=== PATIENT | male | born 1965 ===

== ENCOUNTER 2018-01-13 23:39 | Inpatient (IN) ==
[2018-01-14] MEDS ORDERED: ONDANSETRON 4 MG/2 ML VIAL IV STA (00:07)
[2018-01-14] MEDS ORDERED: MORPHINE 2 MG/1 ML SYRINGE IV STA (00:07)
[2018-01-14] MEDS ORDERED: ONDANSETRON 4 MG/2 ML VIAL ONE (00:19)
[2018-01-14] MEDS ORDERED: MORPHINE 2 MG/1 ML SYRINGE ONE (00:19)
[2018-01-14] MEDS ORDERED: ONDANSETRON 4 MG/2 ML VIAL IV PRN (00:26)
[2018-01-14] MEDS: SODIUM CHLORIDE 0.9% 1,000 ML IV SCH (01:49)
[2018-01-14] MEDS ORDERED: INFLUENZA VIRUS VACCINE 0.5 ML SYRINGE IM ONE (02:10)
[2018-01-14] MEDS: CLINDAMYCIN INJ 600 MG in PREMIX 1 EACH IV SCH ×4 (06:11→23:14)
[2018-01-14 09:36] LABS: Basophils # 0.1 10*3/uL (0.0-0.2); Basophils % 0.6 % (0.0-0.8); Eosinophils # 0.2 10*3/uL (0.0-0.87); Eosinophils % 1.5 % (0.00-10.9); Hematocrit 42.9 VOL% (42.0-52.0); Hemoglobin 14.4 GM/DL (14.0-18.0); Immature Granulocytes Absolute 0.14 #; Lymphocytes # 0.8 10*3/uL (1.4-4.0); Lymphocytes % 5.4 % (21.2-54.2); Mean Corpuscular HGB Conc 33.6 GM/DL (32-36); Mean Corpuscular Hemoglobin 32 PG (27-34); Mean Corpuscular Volume 96.6 FL (87-102); Mean Platelet Volume 9.2 FL (9.6-12.0); Monocytes # 1.3 10*3/uL (0.11-0.8); Monocytes % 8.8 % (1.7-12.7); Neutrophils # 11.9 10*3/uL (1.4-7.4); Neutrophils % 82.7 % (38.7-73.9); Platelet Count 261 T/CUMM (130-400); Red Blood Count 4.44 MC/CUMM (3.8-5.5); Red Cell Distribution Width 14.2 % (9.3-17.3); White Blood Count 14.4 T/CUMM (4-12)
[2018-01-14] MEDS: ENOXAPARIN 40 MG/0.4 ML SYRINGE SUBCUT SCH (09:45)
[2018-01-14 11:57] LABS: Calcium 7.8 MG/DL (8.5-10.1); Osmolality,Calculated 284.4 MOS/KG (273-304); Potassium 5.6 MMOL/L (3.5-5.1)
[2018-01-14] MEDS ORDERED: CALCIUM GLUCONATE 1,000 MG in SODIUM CHLORIDE 0.9% 100 ML IV ONE (12:30)
[2018-01-14] MEDS: CHOLECALCIFEROL 1,000 UNIT TABLET PO SCH ×4 (12:56→20:25)
[2018-01-14] MEDS ORDERED: SUGAMMADEX 200 MG/2 ML VIAL IV ONE (14:06)
[2018-01-14] MEDS ORDERED: SODIUM POLYSTYRENE SULFATE 15 GM/60 ML BOTTLE PO ONE (14:17)
[2018-01-14] MEDS ORDERED: DEXTROSE 50% 25 GM/50 ML VIAL IV PRN ×2 (14:36→16:02)
[2018-01-14] MEDS ORDERED: GLUCAGON 1 MG VIAL IM PRN ×2 (14:36→16:02)
[2018-01-14] MEDS: ALBUTEROL 2.5 MG/3 ML NEB RESP TX SCH ×3 (15:01→19:15)
[2018-01-14] MEDS: PREGABALIN 100 MG CAPSULE PO SCH ×2 (15:13→20:26)
[2018-01-14] MEDS ORDERED: PROPOFOL 200 MG/20 ML VIAL IV ONE (15:28)
[2018-01-14] MEDS ORDERED: fentaNYL 100 MCG/2 ML VIAL ONE (15:29)
[2018-01-14] MEDS ORDERED: ROCURONIUM 100 MG/10 ML VIAL IV ONE (15:29)
[2018-01-14] MEDS ORDERED: SEVOFLURANE 1 UNIT/15 MINUTE INH ONE (15:29)
[2018-01-14] MEDS: FUROSEMIDE 80 MG TABLET PO SCH (15:56)
[2018-01-14] MEDS: HYDROmorphone 2 MG/1 ML VIAL IV PRN ×2 (15:56→20:26)
[2018-01-14] MEDS: INSULIN REGULAR 100 UNIT/ML SUBCUT SCH ×2 (16:15→20:57)
[2018-01-14] MEDS: MAGNESIUM CHLORIDE 64 MG TABLET PO SCH (20:25)
[2018-01-14] MEDS: CARVEDILOL 6.25 MG TABLET PO SCH (20:25)
[2018-01-14] MEDS: ASCORBIC ACID 500 MG TABLET PO SCH (20:26)
[2018-01-15] MEDS: ALBUTEROL 2.5 MG/3 ML NEB RESP TX SCH ×7 (00:04→23:11)
[2018-01-15] MEDS: CLINDAMYCIN INJ 600 MG in PREMIX 1 EACH IV SCH ×3 (05:58→22:30)
[2018-01-15] MEDS: SODIUM CHLORIDE 0.9% 1,000 ML IV SCH ×4 (06:00→21:24)
[2018-01-15 06:44] LABS: Basophils # 0.1 10*3/uL (0.0-0.2); Basophils % 0.6 % (0.0-0.8); Eosinophils # 0.3 10*3/uL (0.0-0.87); Eosinophils % 2.6 % (0.00-10.9); Hematocrit 39.3 VOL% (42.0-52.0); Hemoglobin 13.3 GM/DL (14.0-18.0); Immature Granulocytes % 0.9 %; Lymphocytes # 0.8 10*3/uL (1.4-4.0); Lymphocytes % 6.7 % (21.2-54.2); Mean Corpuscular HGB Conc 33.8 GM/DL (32-36); Mean Corpuscular Hemoglobin 32 PG (27-34); Mean Corpuscular Volume 94.7 FL (87-102); Mean Platelet Volume 9.3 FL (9.6-12.0); Monocytes # 1.3 10*3/uL (0.11-0.8); Monocytes % 11.3 % (1.7-12.7); Neutrophils # 9.1 10*3/uL (1.4-7.4); Neutrophils % 77.9 % (38.7-73.9); Platelet Count 257 T/CUMM (130-400); Red Blood Count 4.15 MC/CUMM (3.8-5.5); Red Cell Distribution Width 14.2 % (9.3-17.3); White Blood Count 11.7 T/CUMM (4-12)
[2018-01-15 06:58] LABS: Hemoglobin A1C 13.3 % (4.2-6.3)
[2018-01-15 07:21] LABS: Bilirubin,Total 1.6 MG/DL (0.2-1.0); Calcium 7.8 MG/DL (8.5-10.1); Osmolality,Calculated 287.7 MOS/KG (273-304); Potassium 4.6 MMOL/L (3.5-5.1); Total Protein 4.7 G/DL (6.4-8.3)
[2018-01-15] MEDS: CHOLECALCIFEROL 1,000 UNIT TABLET PO SCH ×4 (08:00→21:18)
[2018-01-15] MEDS: ASPIRIN EC 81 MG TABLET PO SCH (08:00)
[2018-01-15] MEDS: ENOXAPARIN 40 MG/0.4 ML SYRINGE SUBCUT SCH ×2 (08:00→08:43)
[2018-01-15] MEDS: FUROSEMIDE 80 MG TABLET PO SCH ×3 (08:00→15:28)
[2018-01-15] MEDS: MAGNESIUM CHLORIDE 64 MG TABLET PO SCH ×2 (08:00→21:18)
[2018-01-15] MEDS: DIGOXIN 0.125 MG TABLET PO SCH (08:00)
[2018-01-15] MEDS: THYROID 60 MG TABLET PO SCH (08:00)
[2018-01-15] MEDS: CARVEDILOL 6.25 MG TABLET PO SCH ×2 (08:00→21:21)
[2018-01-15] MEDS: ZINC SULFATE 220 MG CAPSULE PO SCH (08:01)
[2018-01-15] MEDS: PREGABALIN 100 MG CAPSULE PO SCH ×3 (08:01→21:21)
[2018-01-15] MEDS: SIMVASTATIN 40 MG TABLET PO SCH (08:01)
[2018-01-15] MEDS: INSULIN REGULAR 100 UNIT/ML SUBCUT SCH ×4 (08:01→21:22)
[2018-01-15] MEDS: ASCORBIC ACID 500 MG TABLET PO SCH ×2 (08:02→21:21)
[2018-01-15] MEDS: HYDROmorphone 2 MG/1 ML VIAL IV PRN (11:24)
[2018-01-15] MEDS ORDERED: HYDROmorphone 2 MG/1 ML VIAL IV PRN (14:46)
[2018-01-15] MEDS ORDERED: INSULIN GLARGINE 100 UNIT/ML SUBCUT SCH (21:00)
[2018-01-16] MEDS: ALBUTEROL 2.5 MG/3 ML NEB RESP TX SCH ×4 (03:22→16:05)
[2018-01-16] MEDS: CLINDAMYCIN INJ 600 MG in PREMIX 1 EACH IV SCH ×2 (05:42→15:02)
[2018-01-16] MEDS: SODIUM CHLORIDE 0.9% 1,000 ML IV SCH ×2 (05:43→12:29)
[2018-01-16 06:34] LABS: Basophils # 0.1 10*3/uL (0.0-0.2); Basophils % 0.9 % (0.0-0.8); Eosinophils # 0.4 10*3/uL (0.0-0.87); Eosinophils % 4.5 % (0.00-10.9); Hematocrit 38.9 VOL% (42.0-52.0); Hemoglobin 13.6 GM/DL (14.0-18.0); Immature Granulocytes % 1.5 %; Immature Granulocytes Absolute 0.13 #; Lymphocytes % 11.3 % (21.2-54.2); Mean Corpuscular Hemoglobin 33 PG (27-34); Mean Corpuscular Volume 93.7 FL (87-102); Mean Platelet Volume 9.1 FL (9.6-12.0); Monocytes # 0.9 10*3/uL (0.11-0.8); Monocytes % 10.7 % (1.7-12.7); Neutrophils # 6.2 10*3/uL (1.4-7.4); Neutrophils % 71.1 % (38.7-73.9); Platelet Count 258 T/CUMM (130-400); Red Blood Count 4.15 MC/CUMM (3.8-5.5); White Blood Count 8.7 T/CUMM (4-12)
[2018-01-16 06:55] LABS: Albumin 1.9 G/DL (3.4-5.0); Bilirubin,Total 1.1 MG/DL (0.2-1.0); Calcium 7.6 MG/DL (8.5-10.1); Osmolality,Calculated 286.5 MOS/KG (273-304); Potassium 4.4 MMOL/L (3.5-5.1); Total Protein 4.7 G/DL (6.4-8.3)
[2018-01-16] MEDS: ASPIRIN EC 81 MG TABLET PO SCH (08:28)
[2018-01-16] MEDS: ZINC SULFATE 220 MG CAPSULE PO SCH (08:28)
[2018-01-16] MEDS: FUROSEMIDE 80 MG TABLET PO SCH ×2 (08:28→15:02)
[2018-01-16] MEDS: CARVEDILOL 6.25 MG TABLET PO SCH (08:28)
[2018-01-16] MEDS: ASCORBIC ACID 500 MG TABLET PO SCH (08:28)
[2018-01-16] MEDS: PREGABALIN 100 MG CAPSULE PO SCH ×2 (08:28→15:03)
[2018-01-16] MEDS: THYROID 60 MG TABLET PO SCH (08:28)
[2018-01-16] MEDS: MAGNESIUM CHLORIDE 64 MG TABLET PO SCH (08:28)
[2018-01-16] MEDS: SIMVASTATIN 40 MG TABLET PO SCH (08:28)
[2018-01-16] MEDS: DIGOXIN 0.125 MG TABLET PO SCH (08:28)
[2018-01-16] MEDS: INSULIN REGULAR 100 UNIT/ML SUBCUT SCH ×3 (08:29→17:00)
[2018-01-16] MEDS: CHOLECALCIFEROL 1,000 UNIT TABLET PO SCH ×3 (08:29→17:01)
[2018-01-16] MEDS: ENOXAPARIN 40 MG/0.4 ML SYRINGE SUBCUT SCH (08:29)
[2018-01-16 15:22] VITALS: BP 106/67
== END 2018-01-16 17:35 | disposition home or self-care (01) | DRG 330 ==
LOC: EDUNIT# → N.ED 23:39 → N.EDINP 01-14 00:26 → N.5E 01-14 02:02
PROVIDERS: ADMIT Surgery; ATTEND Surgery